=== PATIENT | female | born 1995 | race African-American/Black ===

== ENCOUNTER 2019-07-06 22:15 | Emergency (ER) | payer SELFPAY ==
[2019-07-06] MEDS ORDERED: DIPHENHYDRAMINE 50 MG/ML VIAL ONE (22:54)
[2019-07-06] MEDS ORDERED: ACETAMINOPHEN 500 MG TAB ONE (22:54)
[2019-07-06] MEDS ORDERED: NA CHLORIDE 0.9% 1,000 ML ONE (22:55)
[2019-07-06] MEDS ORDERED: KETOROLAC 30 MG/ML INJ ONE (22:55)
--- NOTE | 2019-07-06 23:06 | RAD REPORT ---
EXAM DESCRIPTION: RAD - Chest Pa And Lat (2 Views) - 07/06/2019 10:59 pm CLINICAL HISTORY: cough, fever Chest pain. COMPARISON: No comparisons FINDINGS: Mild linear opacities are present in the left mid lung and left lower lobe, most compatibl e with pneumonia. The heart is normal in size. No displaced fractures. IMPRESSION: Developing left-sided pneumonia.
[2019-07-06 23:11] LABS: Urine Blood TRACE (NEG); Urine Glucose NEGATIVE (NEG); Urine Protein NEGATIVE (NEG)
[2019-07-06] MEDS ORDERED: CEFTRIAXONE/SWI 1gm 2 GM/20 ML SYR ONE (23:50)
[2019-07-06] MEDS ORDERED: AZITHROMYCIN 250 MG TAB ONE (23:50)
[2019-07-06] MEDS ORDERED: ALBUTEROL 2.5 MG/3 ML NEB SOL ONE (23:50)
[2019-07-06 23:52] LABS: Urine Bacteria <20 /HPF (<20); Urine Culture Reflex Order NOT NEEDED; Urine RBC <5 /HPF (NONE SEEN)
[2019-07-06 23:57] LABS: Absolute Lymphocytes (CBC) 0.6 K/uL (0.7-4.9); Basophils % 0.4 % (0-1.3); Hematocrit 39.1 % (36.0-45.0); Lymphocytes % 13.7 % (15.3-44.8); MPV 9.2 fL (7.6-11.3); RBC Red Blood Cell Count 4.96 M/uL (3.86-4.86)
[2019-07-07 00:07] LABS: ALT/SGPT 24 U/L (12-78); AST/SGOT 16 U/L (15-37); Albumin 3.8 g/dL (3.4-5.0); Alkaline Phosphatase 73 U/L (45-117); BUN Blood Urea Nitrogen 9 mg/dL (7-18); Bicarbonate 26 mmol/L (21-32); Bilirubin Total 0.4 mg/dL (0.2-1.0); Glucose Level 95 mg/dL (74-106); Sodium Level 136 mmol/L (136-145)
--- NOTE | 2019-07-07 00:43 | ER ---
Nurse's Notes [facility] Name: Guadalupe Richards Age: 24 yrs Sex: Female : 1995 Arrival Date: 07/06/2019 Time: 22:17 Bed 18 Private MD: Diagnosis: left lower lobe pneumonia;Influenza B infection Presentation: 07/06 22:15 Presenting complaint: Patient states: "I've been having flu-like symptoms, fever, cc3 headache, and bodyaches since Thursday". Transition of care: patient was not received from another setting of care. Onset of symptoms was July 03, 2019. Risk Assessment: Do you want to hurt yourself or someone else? Patient reports no desire to harm self or others. Initial Sepsis Screen: Does the patient meet any 2 criteria? HR > 90 bpm. Does the patient have a suspected source of infection? No. Patient's initial sepsis screen is negative. Care prior to arrival: None. 22:15 Method Of Arrival: Ambulatory cc3 22:15 Acuity: CLARY 4 cc3 Triage Assessment: 22:15 General: Appears in no apparent distress. uncomfortable, Behavior is calm, cooperative, cc3 appropriate for age. Pain: Complains of pain in generalized body aches. EENT: No signs and/or symptoms were reported regarding the EENT system. Neuro: Level of Consciousness is awake, alert, obeys commands, Oriented to person, place, time, situation, Appropriate for age. Cardiovascular: Heart tones S1 S2 present Capillary refill < 3 seconds in bilateral fingers Patient's skin is warm and dry. Respiratory: Airway is patent Respiratory effort is even, unlabored, Respiratory pattern is regular, symmetrical, Breath sounds are coarse bilaterally. GI: Abdomen is round non-distended, Bowel sounds present X 4 quads. : No signs and/or symptoms were reported regarding the genitourinary system. Derm: Skin is intact, is healthy with good turgor, Skin is normal, black, Skin temperature is warm. Musculoskeletal: Circulation, motion, and sensation intact. Range of motion: intact in all extremities. 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 - Social history:: Smoking status: Patient/guardian denies using tobacco, never smoked. - Ebola Screening: : No symptoms or risks identified at this time. - Family history:: not pertinent. - Hospitalizations: : No recent hospitalization is reported. Screenin:15 Abuse screen: Denies threats or abuse. Denies injuries from another. Nutritional cc3 screening: No deficits noted. Tuberculosis screening: No symptoms or risk factors identified. Fall Risk Ambulatory Aid- None/Bed Rest/Nurse Assist (0 pts). Gait- Normal/Bed Rest/Wheelchair (0 pts) Mental Status- Oriented to own ability (0 pts). Assessment: 22:15 General: see triage assessment. cc3 23:18 Reassessment: Patient appears in no apparent distress at this time. Patient and/or cc3 family updated on plan of care and expected duration. Pain level reassessed. Patient is alert, oriented x 3, equal unlabored respirations, skin warm/dry/pink. 07/07 00:40 Reassessment: Patient appears in no apparent distress at this time. Patient and/or cc3 family updated on plan of care and expected duration. Pain level reassessed. Patient is alert, oriented x 3, equal unlabored respirations, skin warm/dry/pink. 00:45 Reassessment: Patient appears in no apparent distress at this time. Patient and/or cc3 family updated on plan of care and expected duration. Pain level reassessed. Patient is alert, oriented x 3, equal unlabored respirations, skin warm/dry/pink. Dr. Espinosa discharged the patient home with prescriptions given. IV cannula removed and patient left ER vitally stable and ambulatory. No valuables left in the patient's room. Patient denies pain at this time. Patient states feeling better. Patient states symptoms have improved. Vital Signs: 07/06 22:15 BP 116 / 61; Pulse 115; Resp 20 S; Temp 101.1(O); Pulse Ox 98% on R/A; Weight 84.37 kg cc3 (R); Height 5 ft. 6 in. (167.64 cm) (R); Pain 7/10; 23:45 BP 118 / 65; Pulse 92; Resp 18 S; Pulse Ox 96% on R/A; cc3 07/07 00:30 BP 102 / 45; Pulse 105; Resp 18 S; Temp 99(O); Pulse Ox 97% on R/A; cc3 12 22:15 Body Mass Index 30.02 (84.37 kg, 167.64 cm) cc3 ED Course: 12 22:15 Patient has correct armband on for positive identification. Placed in gown. Bed in low cc3 position. Call light in reach. Side rails up X2. Pulse ox on. NIBP on. 22:15 Arm band placed on left wrist. Patient notified of wait time. cc3 22:17 Patient arrived in ED. ag3 22:27 Mackenzie De León is Primary Nurse. cc3 22:30 Ron Espinosa MD is Attending Physician. wa 22:42 Triage completed. cc3 23:01 Chest Pa And Lat (2 Views) XRAY In Process Unspecified. EDMS 23:04 Urine Microscopic Only Sent. ds4 12/ 00:40 Abdirizak Rodriguez MD is Referral Physician. wa 00:45 No provider procedures requiring assistance completed. IV discontinued, intact, cc3 bleeding controlled, No redness/swelling at site. Pressure dressing applied. Administered Medications: 12 23:00 Drug: Tylenol 1000 mg Route: PO; cc3 12 00:35 Follow up: Response: No adverse reaction; Temperature is decreased cc3 12/11 23:20 Drug: NS 0.9% 1000 ml Route: IV; Rate: 1 bolus; Site: right wrist; cc3 07/07 00:35 Follow up: Response: No adverse reaction; IV Status: Completed infusion; IV Intake: cc3 1000ml 07/06 23:20 Drug: TORadol 30 mg Route: IVP; Site: right wrist; cc3 07/07 00:35 Follow up: Response: No adverse reaction; Pain is decreased cc3 12/11 23:25 Drug: Benadryl 12.5 mg Route: IVP; Site: right wrist; cc3 1212 00:00 Follow up: Response: No adverse reaction cc3 00:00 Drug: Zithromax 500 mg Route: PO; cc3 00:31 Follow up: Response: No adverse reaction cc3 00:05 Drug: Rocephin - (cefTRIAXone) 2 grams Route: IVPB; Infused Over: 30 mins; Site: right cc3 wrist; 00:32 Follow up: Response: No adverse reaction; IV Status: Completed infusion; IV Intake: [id number] 00:05 Drug: Albuterol 2.5 mg Route: Inhalation; cc3 00:31 Follow up: Response: No adverse reaction; Marked relief of symptoms cc3 Intake: 00:32 IV: 20ml; Total: 20ml. cc3 00:35 IV: 1000ml; Total: 1020ml. cc3 Outcome: 00:41 Discharge ordered by . josé antonio 00:45 Discharged to home ambulatory. cc3 00:45 Condition: stable 00:45 Discharge instructions given to patient, Instructed on discharge instructions, follow up and referral plans. medication usage, Demonstrated understanding of instructions, follow-up care, medications, Prescriptions given X 3. 01:07 Patient left the ED. cc3 Signatures: Dispatcher [employer] EDMS Mike Scott ds4 Ron Espinosa MD MD wa Cordel, Charlene cc3 Noris Kruger ag3 Corrections: (The following items were deleted from the chart) 01:03 12/ 22:15 Respiratory: Airway is patent Respiratory effort is even, unlabored, cc3 Respiratory pattern is regular, symmetrical, Breath sounds are clear bilaterally. cc3
--- NOTE | 2019-07-07 00:44 | EDPHYS ---
Physician Documentation [facility] Name: Guadalupe Richards Age: 24 yrs Sex: Female : 1995 Arrival Date: 07/06/2019 Time: 22:17 Bed 18 Private MD: ED Physician Ron Espinosa HPI: 07/06 23:40 This 24 yrs old Black Female presents to ER via Ambulatory with complaints of Flu wa Symptoms. 23:40 The patient or guardian reports cough, flu symptoms, arthralgias, low-grade fever, wa myalgias, sore throat. Onset: The symptoms/episode began/occurred 3 day(s) ago. Severity of symptoms: At their worst the symptoms were moderate, in the emergency department the symptoms are actually worse, moderately. Modifying factors: The symptoms are alleviated by nothing, the symptoms are aggravated by nothing. Associated signs and symptoms: Pertinent positives: fever, sore throat, Pertinent negatives: chest pain, diarrhea, ear ache, rhinorrhea, vomiting. The patient has not experienced similar symptoms in the past. The patient has not recently seen a physician. 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 - Social history:: Smoking status: Patient/guardian denies using tobacco, never smoked. - Ebola Screening: : No symptoms or risks identified at this time. - Family history:: not pertinent. - Hospitalizations: : No recent hospitalization is reported. ROS: 23:42 Eyes: Negative for injury, pain, redness, and discharge, Neck: Negative for injury, wa pain, and swelling, Cardiovascular: Negative for chest pain, palpitations, and edema, Abdomen/GI: Negative for abdominal pain, nausea, vomiting, diarrhea, and constipation, Back: Negative for injury and pain, : Negative for injury, bleeding, discharge, and swelling, MS/Extremity: Negative for injury and deformity, Skin: Negative for injury, rash, and discoloration, Neuro: Negative for headache, weakness, numbness, tingling, and seizure, Psych: Negative for depression, anxiety, suicide ideation, homicidal ideation, and hallucinations. 23:42 Constitutional: Positive for body aches, chills, fatigue, fever, malaise. 23:42 ENT: Positive for sore throat, Negative for nasal discharge, rhinorrhea. 23:42 Respiratory: Positive for cough, with no reported sputum. 23:44 All other systems are negative. wa Exam: 23:45 Constitutional: The patient appears alert, febrile, obviously ill. wa 23:45 Head/Face: Normocephalic, atraumatic. Eyes: Pupils equal round and reactive to light, wa extra-ocular motions intact. Lids and lashes normal. Conjunctiva and sclera are non-icteric and not injected. Cornea within normal limits. Periorbital areas with no swelling, redness, or edema. ENT: Nares patent. No nasal discharge, no septal abnormalities noted. Tympanic membranes are normal and external auditory canals are clear. Oropharynx with no redness, swelling, or masses, exudates, or evidence of obstruction, uvula midline. Mucous membranes moist. Neck: Trachea midline, no thyromegaly or masses palpated, and no cervical lymphadenopathy. Supple, full range of motion without nuchal rigidity, or vertebral point tenderness. No Meningismus. Chest/axilla: Normal chest wall appearance and motion. Nontender with no deformity. No lesions are appreciated. Abdomen/GI: Soft, non-tender, with normal bowel sounds. No distension or tympany. No guarding or rebound. No evidence of tenderness throughout. Back: No spinal tenderness. No costovertebral tenderness. Full range of motion. Skin: Warm, dry with normal turgor. Normal color with no rashes, no lesions, and no evidence of cellulitis. MS/ Extremity: Pulses equal, no cyanosis. Neurovascular intact. Full, normal range of motion. Neuro: Awake and alert, GCS 15, oriented to person, place, time, and situation. Cranial nerves II-XII grossly intact. Motor strength 5/5 in all extremities. Sensory grossly intact. Cerebellar exam normal. Normal gait. Psych: Awake, alert, with orientation to person, place and time. Behavior, mood, and affect are within normal limits. 23:45 Cardiovascular: Rate: tachycardic, Rhythm: regular, Pulses: no pulse deficits are appreciated, Heart sounds: normal, Edema: is not appreciated, JVD: is not appreciated. 23:45 Respiratory: the patient does not display signs of respiratory distress, Respirations: normal, Breath sounds: noted scattered coarseness bilaterally, Respiratory rate: nml Vital Signs: 22:15 BP 116 / 61; Pulse 115; Resp 20 S; Temp 101.1(O); Pulse Ox 98% on R/A; Weight 84.37 kg cc3 (R); Height 5 ft. 6 in. (167.64 cm) (R); Pain 7/10; 23:45 BP 118 / 65; Pulse 92; Resp 18 S; Pulse Ox 96% on R/A; cc3 07/07 00:30 BP 102 / 45; Pulse 105; Resp 18 S; Temp 99(O); Pulse Ox 97% on R/A; cc3 07/06 22:15 Body Mass Index 30.02 (84.37 kg, 167.64 cm) cc3 MDM: 07/06 22:30 Patient medically screened. ny 23:46 Differential Diagnosis: Bronchitis Influenza Viral Syndrome Pneumonia Other symptoms wa consistent with possible viral syndrome. however ill-appearing with abd labs. will r/o alternative dx. will resusc and reassess. Data reviewed: vital signs, nurses notes. 07/07 00:37 Test interpretation: by ED physician or midlevel provider: noted flu B positive. CXR wa noted for LL infiltrate consistent with pna. . Response to treatment: the patient's symptoms have markedly improved after treatment. 07/06 22:43 Order name: Flu; Complete Time: 00:16 ny 07/06 22:43 Order name: Urine Microscopic Only; Complete Time: 00:16 ny 07/06 22:44 Order name: Chest Pa And Lat (2 Views) XRAY; Complete Time: 23:22 ny 07/06 22:45 Order name: CBC with Diff; Complete Time: 00:16 ny 07/06 22:45 Order name: CMP; Complete Time: 00:16 ny 07/06 23:06 Order name: Urine Dipstick--Ancillary (enter results); Complete Time: 23:22 ds4 07/06 22:43 Order name: Urine Dipstick-Ancillary (obtain specimen); Complete Time: 22:56 ny 07/06 22:43 Order name: Urine Test (obtain specimen); Complete Time: 22:56 ny Administered Medications: 07/06 23:00 Drug: Tylenol 1000 mg Route: PO; cc3 07/07 00:35 Follow up: Response: No adverse reaction; Temperature is decreased cc3 07/06 23:20 Drug: NS 0.9% 1000 ml Route: IV; Rate: 1 bolus; Site: right wrist; cc3 07/07 00:35 Follow up: Response: No adverse reaction; IV Status: Completed infusion; IV Intake: cc3 1000ml 07/06 23:20 Drug: TORadol 30 mg Route: IVP; Site: right wrist; cc3 07/07 00:35 Follow up: Response: No adverse reaction; Pain is decreased cc3 07/06 23:25 Drug: Benadryl 12.5 mg Route: IVP; Site: right wrist; cc3 07/07 00:00 Follow up: Response: No adverse reaction cc3 00:00 Drug: Zithromax 500 mg Route: PO; cc3 00:31 Follow up: Response: No adverse reaction cc3 00:05 Drug: Rocephin - (cefTRIAXone) 2 grams Route: IVPB; Infused Over: 30 mins; Site: right cc3 wrist; 00:32 Follow up: Response: No adverse reaction; IV Status: Completed infusion; IV Intake: [id number] 00:05 Drug: Albuterol 2.5 mg Route: Inhalation; cc3 00:31 Follow up: Response: No adverse reaction; Marked relief of symptoms cc3 Disposition: 07/07/19 00:41 Discharged to Home. Impression: left lower lobe pneumonia, Influenza B infection. - Condition is Stable. - Prescriptions for Augmentin 875- 125 mg Oral Tablet - take 1 tablet by ORAL route every 12 hours for 7 days; 14 tablet. Albuterol Sulfate 90 mcg/actuation - inhale 1-2 puff by INHALATION route every 4-6 hours; 1 Inhaler. cetirizine 10 mg Oral tablet - take 1 tablet by ORAL route once daily; 10 tablet. - Medication Reconciliation Form, Thank You Letter, Antibiotic Education, Prescription Opioid Use form. - Follow up: Abdirizak Rodriguez MD; When: 2 - 3 days; Reason: Recheck today's complaints. - Problem is new. - Symptoms have improved. Signatures: Dispatcher [employer] EDMS Ron Espinosa MD MD wa Cordel, Charlene cc3 Corrections: (The following items were deleted from the chart) 01:07 00:41 07/07/2019 00:41 Discharged to Home. Impression: left lower lobe pneumonia; cc3 Influenza B infection. Condition is Stable. Forms are Medication Reconciliation Form, Thank You Letter, Antibiotic Education, Prescription Opioid Use. Follow up: Abdirizak Rodriguez; When: 2 - 3 days; Reason: Recheck today's complaints. Problem is new. Symptoms have improved. wa
== END 2019-07-07 01:07 | disposition home or self-care (01) ==
LOC: ER 22:15
DX: J10.08 Influenza due to other identified influenza virus with other specified pneumonia (principal)
CPT/HCPCS: 36415; 71046; 80053; 81003; 81015; 85025; 87804; 96361; 96365; 96375; 99284; J0696; J1200; J7030